=== PATIENT | female | born 1970 | race Caucasian/White ===

== ENCOUNTER → 2017-06-30 | Outpatient (CLI) | payer OTHER ==
[~2017-06-30] MED LIST: ATIVAN1 M1 PO; BACTRIM DS 8001 TA1 PO; BOT RE; COLACE GENERIC100 MG PO; FLEXERIL10 M1 PO; KEFLEX 500MG.500 MG PO; MEDROL 4MG. DOSE4 MG PO; MIRALAX17 GM/PACK PO; NOMEDS XX; STOOL SOFTENER240 MG PO; TYLENOL ES500 M1 PO; VISTARIL50 MG PO; [UNRECOGNIZED DRUG - OTHER] RE
[2017-06-30 20:23] LABS: HEMOGLOBIN 12.7 g/dL (12.2-16.2)
[2017-06-30 20:24] LABS: LYMPH # 1.7 K/mm3 (0.7-4.5); LYMPH % 21.8 % (10-50.0)
[2017-06-30 21:16] LABS: AMPHETAMINES/METAMPHETAMINES NEGATIVE ng/mL (<1000)
[2017-06-30 22:30] LABS: BUN 12 mg/dL (7-18)
[2017-06-30 22:55] LABS: GFR (ESTIMATED) 68 ML/MIN (59-)
== END ==
LOC: LAB 18:35
PROVIDERS: Physician Assistant
DX: Z79.899 Other long term (current) drug therapy (principal)
CPT/HCPCS: G0480

== ENCOUNTER → 2017-07-02 | Outpatient (CLI) | payer OTHER ==
--- NOTE | 2017-07-03 13:06 | RADIOLOGY REPORT PS360 ---
History and Indications: Tobacco use, family history, chest pain, computer, palpitations and syncope. Procedure: Patient exercised on Pillo protocol 8 minutes, resting heart rate was 86 bpm, resting blood pressure 128/62, with exercise maximum heart rate achieved was 1 65 bpm which is equal to 95% of the maximum predicted heart rate and a blood pressure was 143/71. Test was started due to shortness of breath and fatigue, patient denied any complained of chest pain. Patient has good exercise capacity achieved 10.1mets of workload on treadmill, the blood pressure response to exercise was adequate. Electrocardiogram: Resting electrocardiogram showed sinus rhythm, indeterminate axis, with exercise there is less than 1.[address] segment depression noted from the baseline EKG . The EKG portion of the exercise Myoview is negative for ischemia. Cardiac stress and resting SPECT images: Cardiac stress and rest SPECT images were obtained using technetium 99 Myoview 10.3 mCi at rest and 30.2 mCi at stress, gated SPECT further analysis of segmental wall motion and calculation of the ejection fraction also done. Cardiac stress and rest images show uniform myocardial activity without any segmental perfusion abnormality, computer derived ejection fraction is 60% with no obvious regional wall motion abnormality, right ventricle is normal size and contractility. Conclusion: 1. The EKG portion of the exercise Myoview is negative for ischemia, has good exercise capacity achieved 10.1mets of workload on treadmill, the blood pressure response to exercise was adequate, there was no exercise induced chest discomfort. 2. No obvious scintigraphic evidence of reversible ischemia seen at this level of exercise, computer derived ejection fraction is 60% with no obvious regional wall motion abnormality, right ventricle is normal size and contractility. 3. Normal exercise Myoview.
--- NOTE | 2017-07-03 15:49 | RADIOLOGY REPORT PS360 ---
PROCEDURE: 2-D M-mode and color Doppler study INDICATIONS FOR THE TEST: Chest pain + COPD Heart Murmur Tobacco Smoking+ Palpitations Fatigue Syncope Edema+ Hypertension Diabetes Mellitus Rheumatic Fever SOB MIN Obesity Hyperlipidemia Family History HD Additional History PATIENT INFORMATION HEIGHT:63 WEIGHT:106 GENDER: Female B/P:128/62 2-D/M-MODE INTERPRETATION: 2-D MEASUREMENTS OBSERVED VALUES IN CMS Right Ventricular Dimension (RVDd) 2.1 Interventricular Septum (Thickness)(IVsd) 0.8 Left Ventricular Internal Dimensions(LVIDd) 4.5 Left Ventricular Posterior Wall (Thickness)(LVPWd) 0.6 Aortic Root 2.5 Aortic Cusp Separation 1.7 Left Atrial Dimensions (LAD) 3.2 2D 1. The left atrium is normal size, left ventricle is normal size, there is no concentric left ventricular hypertrophy, visually estimated ejection fraction 55% with no obvious regional wall motion abnormality. 2. The right atrium and right ventricle are normal size and contractility. 3. The aortic, mitral and tricuspid valve are structurally normal. 4. The pulmonic valve is poorly visualized. 5. No significant pericardial effusion noted. DOPPLER INTERROGATION: Doppler interrogation of the aortic mitral and tricuspid valvular presence of trace mitral and tricuspid regurgitation, tricuspid regurgitant jet velocity insufficient for calculation of the right ventricular systolic pressure, diastolic parameters are within normal range. CONCLUSION: 1. Normal left ventricular size, preserved left ventricular systolic function, visually estimated ejection fraction 55% with no obvious regional wall motion abnormality, diastolic parameters are normal. 2. Trace mitral and tricuspid regurgitation of no hemodynamic significance. 3. No significant pericardial effusion noted.
== END ==
LOC: RAD 07:04
DX: R07.9 Chest pain, unspecified (principal); R55 Syncope and collapse; R94.31 Abnormal electrocardiogram [ECG] [EKG]; R00.2 Palpitations
CPT/HCPCS: A9502